=== PATIENT | female | born 1985 | race Caucasian/White ===

== ENCOUNTER 2020-12-01 06:05 | Inpatient (IN) | payer BC, SELFPAY ==
[2020-12-01] VITALS (97 sets, daily range): BP systolic 70–118; BP diastolic 46–86; PULSE 60–93; TEMP 36.7–37.6; O2SAT 95–100; BMI 26.9
[2020-12-01 07:12] LABS: Basophils Percent Auto 0.4 % (0.2-1.2); Eosinophils Absolute Auto 0.1 K/mm3 (0-0.3); Eosinophils Percent Auto 0.9 % (0-4.4); Hematocrit 36.4 % (37.0-47.0); Hemoglobin 12.6 g/dL (12.0-15.0); Immature Granulocyte Absolute 0.06 K/mm3 (0.00-0.031); Immature Granulocyte Percent A 0.7 % (0-0.5); Lymphocytes Absolute Auto 1.04 K/mm3 (0.9-3.2); Lymphocytes Percent Auto 12.6 % (18.3-44.2); Mean Corpuscular HGB Conc 34.6 g/dl (32-36); Mean Corpuscular Hemoglobin 31.2 pg (26-34); Mean Corpuscular Volume 90.1 fl (80-100); Mean Platelet Volume 10.2 fl (7.4-10.4); Monocytes Absolute Auto 0.5 K/mm3 (0.1-0.6); Monocytes Percent Auto 5.7 % (2.6-8.5); Neutrophils Absolute Auto 6.6 K/mm3 (1.3-6.7); Neutrophils Percent Auto 79.7 % (45.5-73.1); Platelet Count Result 195 k/mm3 (150-375); Red Blood Count 4.04 M/mm3 (4.2-5.4); Red Cell Distribution Width 14.6 % (11.5-14.5); White Blood Count 8.2 K/mm3 (4.5-10.0)
--- NOTE | 2020-12-01 07:44 | WPDOBADMIT ---
Obstetrics - Admit Note Admission Note: record reviewed. Additions to the history and/or subsequent changes in the physical findings follow. 35 y/o at 39 3/7 weeks here for induction of labor. She has had variable presentation, but was vertex last week. Rare contractions. GBS neg. AVSS NST reactive TOCO: rare contractions ABD soft, nontender, nonvertex. EXT nontender Bedside ultrasound exam shows transverse lie with head on maternal left. A: IUP at term with transverse lie. P: We have reviewed options many times, and reviewed again today. I offered ECV vs. primary vs. expectant management. The patient is interested in ECV under epidural. If successful, we will induce labor. If not, we will proceed to . We have reviewed risks, benefits and alternatives in detail. She understands and elects to proceed.
[2020-12-01] MEDS: LACTATED RINGERS 1,000 ML 125 ML IV CONT ×2 (08:50→19:57)
--- NOTE | 2020-12-01 11:43 | LDADM ---
This patient, Christiana Galvin, was admitted to Labor/Delivery/Recovery 105 on 12/01/20 at 06:05. Plans for labor, pain management and were discussed with patient. Patient/family oriented to hospital policies and general routines including ID bracelet, bed and alarms, visiting hours, pain management, procedures, bathroom and other care routines, personal items, smoking policy, room service/diet and guest tray routines, infant security routines, and visiting hours. Patient/Family are encouraged to report perceived risks to care and to ask questions if they do not understand what they are told or what they should do. See OBIX for further documentation.
--- NOTE | 2020-12-01 12:28 | PM.PROC ---
Procedure Note - Detailed Date of procedure: 12/01/20 Pre-op diagnosis: Induction of Labor Malpresentation Post-op diagnosis: same Procedure performed: External cephalic version under ultrasound guidance Description of procedure: After appropriate informed consent was obtained, she received an epidural for pain control. Bedside sonography performed by me. The breech was elevated and the head rotated clockwise (forward somersault), effecting vertex presentation. FHR normal. Cervix 2/80/-2. AROM with clear fluid and IUPC placed. Anesthesia: epidural Surgeon: Sidney Barahona MD Estimated blood loss (mL): 0 Drains: Yes (sanon) Pathology: none sent Complications: None Condition: stable Findings: As above.
[2020-12-01] MEDS: OXYTOCIN 30 UNITS/NS 500 ML 30 UNITS/500 ML BAG IV CONT (12:46)
[2020-12-01] MEDS: LORATADINE 10 MG TABLET PO (16:18)
--- NOTE | 2020-12-01 19:24 | PM.OBPNLAB ---
Pain Control Date/time seen: 12/01/20 19:24 Comments: Comfortable with epidural. Pelvic Exam Dilation (cm): 5 Effacement (%): 80 station: -2 Contractions Monitor mode: None Contraction frequency: 3 Contraction pattern: Irregular Status Comments: NST good variability. TOCO: contractions every 2-5 min Assessment and Plan Pitocin rate (mU/min): 18 Plan: continuous present management
[2020-12-01] MEDS: ONDANSETRON INJ 4 MG/2 ML VIAL IV PUSH (21:22)
[2020-12-01] MEDS: diphenhydrAMINE HCl INJ 50 MG/ML VIAL 25 MG IV PUSH (23:14)
[2020-12-02] VITALS (30 sets, daily range): BP systolic 81–149; BP diastolic 39–67; PULSE 65–90; RESP 16–18; TEMP 36.4–37.3; O2SAT 89–100
[2020-12-02] MEDS: LACTATED RINGERS 1,000 ML 125 ML IV CONT (00:17)
--- NOTE | 2020-12-02 01:39 | P.PCNOB_ITS ---
OB - Delivery Note Procedure Delivery date: 12/02/20 Procedure: External cephalic version under ultrasound guidance Induction of labor Excisional biopsies of vulvar skin tags x 2 Induction method: AROM and per pitocin protocol Delivery monitor: external FHT, external uterine and internal uterine Route of delivery: Laceration Description: Perineal - 2nd Degree Delivery repair: vicryl (3-0) Specimen: Yes (cord blood, vulvar skin tags x 2) Quantitative Blood Loss (ml): 40 Anesthesia type: Epidural Disposition: PACU Complications: None Narrative: 35 y/o at 39 4/7 weeks gestation who had presented to the hospital for external cephalic version / induction of labor. Bedside ultrasound exam by me confirmed transverse lie. She received an epidural. ECV was successful. Oxytocin was administered intravenously. Amniotomy was performed with return of clear fluid. Her labor progressed and her cervix dilated completely. She pushed with good effort over one contraction and delivered the 's head to the perineum, followed by the body. The nose and mouth were bulb suctioned. After a delay, the cord was clamped and cut. The was handed off the field. Cord blood was collected. The placenta delivered spontaneously and was grossly normal in appearance. The usual 3 vessel cord was noted. A second degree midline perineal laceration was sustained. This was reapproximated using 3 0 Vicryl in the usual layered fashion. Excellent hemostasis resulted as did excellent reapproximation of the normal anatomy. Two small right vulvar skin tags measuring 2 x 2 mm each were elevated with tissue forceps and sharply excised with scissors. Wound edges were reapproximated using single, interrupted sutures of 3-0 Vicryl. Needle and instrument counts were correct. The patient was taken to recovery room in stable condition. The infant went to the nursery in stable condition. I was present and scrubbed for the entire delivery. [place] Baby Date of : 12/02/20 Time of : 01:12 Weeks of gestation at delivery: 39 Infant gender: Male Weight (pounds): 6 Weight (ounces): 10 presentation: vertex position: Right Occiput Anterior Placenta delivery description: Spontaneous and Normal Configuration cord vessel description: 3 Vessels and Delayed Cord Clamping score one minute: 8 score five minutes: 8
[2020-12-02] MEDS: OXYTOCIN 30 UNITS/NS 500 ML 30 UNITS/500 ML BAG 125 UNITS IV CONT (01:43)
--- NOTE | 2020-12-02 01:45 | PM.OBDSVD ---
DS: Admitting Diagnosis Admitting Diagnosis Admitting Diagnosis: Malpresentation DS: Discharge Diagnosis Discharge Diagnosis (1) (normal spontaneous vaginal delivery): Code(s): O80 - Encounter for full-term uncomplicated delivery Status: Acute OB - DS: Summary OB Procedures : NST, Ultrasound and External version OB Procedures Intrapartum: Spontaneous Vag Delivery OB Procedures: : None DS: Data Data Completed and Pending Labs on day of discharge: Labs from last 24 hours 12/01/20 12/01/20 12/01/20 06:59 06:59 06:59 WBC 8.2 RBC 4.04 L Hgb 12.6 Hct 36.4 L MCV 90.1 MCH 31.2 MCHC 34.6 RDW 14.6 H Plt Count 195 MPV 10.2 Immature Gran % (Auto) 0.7 H Neut % (Auto) 79.7 H Lymph % (Auto) 12.6 L [place] % (Auto) 5.7 Eos % (Auto) 0.9 Baso % (Auto) 0.4 Lymph # (Auto) 1.04 [place] # (Auto) 0.5 Eos # (Auto) 0.1 Baso # (Auto) 0.0 Abs Immat Gran (auto) 0.06 H Absolute Neuts (auto) 6.6 Absolute Nucleated RBC 0.0 Nucleated RBC % 0.0 RPR Pending Blood Type O Positive Antibody Screen Negative Discharge Plan Discharge Attending physician on discharge: Sidney Barahona Discharging Clinician: Sidney Barahona Patient Disposition: Home, Self-Care Activity: pelvic rest Diet: regular Discharge Instructions: Call or return if temperature above 100.4? F, increased abdominal pain, increased vaginal bleeding or any new problems. Stand Alone Forms: General Discharge Information Follow-up/Referrals: Sidney Barahona MD [Physician] - 6 Weeks Discharge Medications: New ibuprofen 600 mg tablet 600 mg PO Q6H PRN (Reason: cramps) Qty: 30 RF: 0 No Action #2 Tablet 1 tablet PO DAILY RF: 0 Date of admission: 12/01/20 06:05 Primary Care Provider: Too Dick Admitting Provider: Sidney Barahona Attending physician on admission: Sidney Barahona Condition: Stable
[2020-12-02] MEDS: LANOLIN (LANSINOH) 7.5 GM CREAM 1 APPLIC TOPICAL (03:19)
[2020-12-02] MEDS: WITCH HAZEL 40 PADS 1 PAD TOPICAL (03:19)
[2020-12-02] MEDS: BENZOCAINE 20% AER SPR (*SP) 56 GM CAN 1 SPRAY TOPICAL (03:19)
[2020-12-02] MEDS: IBUPROFEN 600 MG TABLET PO ×3 (03:19→16:25)
--- NOTE | 2020-12-02 04:03 | OBPPTRN ---
Patient transferred to post room #285 via w/c. Support person present. Oriented to unit, room, information board, rooming in, admission packet and security measures. Patient verbalizes understanding.
--- NOTE | 2020-12-02 05:10 | PC.NURSE ---
Pt noted to have uterus deviated to the right. Assisted pt to restroom to empty bladder and then FF at U.
[2020-12-02] MEDS: ACETAMINOPHEN 325 MG TABLET 650 MG PO (05:51)
[2020-12-02] MEDS: DOCUSATE SODIUM 100 MG CAPSULE PO ×2 (09:46→16:25)
[2020-12-02] MEDS: MULTIVIT/MIN/PREN/FOL AC/IRON TABLET 1 TAB PO (09:46)
[2020-12-02 11:08] LABS: Rapid Plasma Reagin Non-Reactive (NonReactive)
--- NOTE | 2020-12-02 12:10 | PC.NURSE ---
Consulted with patient, reviewed feeding cues, frequencies, duration of feedings, feeding elimination flow sheet, and signs of adequate intake. Demonstrated stimulation techniques to wake for feeding. Assisted with to breast. Reviewed positioning/alignment, holding breast and asymmetrical latch on. was able to latch correctly. Encouraged mom to get deep latch every time goes to breast. Shown ways to achieve deeper latch each time. nursed eagerly, with steady draws and frequent swallowing noted. Reviewed signs of a correct latch, effective nursing and suck swallow ratio. was able to maintain latch without discomfort to mother. Nipple care reviewed. Instructed mother to call out for RN assistance if she is unable to latch for feeding or she has discomfort with nursing. Instructed feeding should be initiated three hours from start of last feeding or if feeding cues are noted before. Mother voiced understanding of information shared.
[2020-12-03] MEDS: IBUPROFEN 600 MG TABLET PO ×2 (01:17→10:07)
[2020-12-03 04:59] LABS: Hematocrit 34.5 % (37.0-47.0); Hemoglobin 11.9 g/dL (12.0-15.0)
--- NOTE | 2020-12-03 07:44 | WPDANLDPN2 ---
Anes-Prog Note L&D Date/Time: 12/03/20 07:44 Comfortable throughout: labor and delivery Neuraxial method: epidural Epidural/Spinal procedure site: clean & non-tender Neuro status: Neuro function grossly intact. Cardiovascular status: normal Respiratory status: normal Airway patency: baseline Mental status: baseline Post-Op hydration status: normal Vital Signs: Last Vital Signs Temp 36.4 C 12/02/20 20:00 Pulse 81 12/02/20 20:00 Resp 18 12/02/20 20:00 BP 104/67 12/02/20 20:00 Pulse Ox 98 12/02/20 20:00 Pain score (VAS): 0 Post-procedural complaints: none Patient feedback: Patient satisfied with anesthetic care.
[2020-12-03 08:00] VITALS: BP 110/77; PULSE 80; RESP 18; TEMP 36.8
--- NOTE | 2020-12-03 08:55 | PM.OBPNVD ---
OB - PN: Subj Subjective Date/time seen: 12/03/20 08:55 Narrative: Pain OK. OB - PN: Obj Data Labs CBC & Chem 7: 12/03/20 04:09 Labs: Laboratory Results - last 24 hr 12/01/20 12/03/20 06:59 04:09 Hgb 11.9 L Hct 34.5 L RPR Non-reactive OB - PN A/P Plan Comments: A: PPD#1, doing well. Would like to go home. P: Home to f/u 6 weeks. Exam Psych: Other: AVSS ABD soft, nontender, fundus firm EXT nontender
[2020-12-03] MEDS: MULTIVIT/MIN/PREN/FOL AC/IRON TABLET 1 TAB PO (10:07)
[2020-12-03] MEDS: DOCUSATE SODIUM 100 MG CAPSULE PO (10:07)
--- NOTE | 2020-12-03 13:34 | PC.NURSE ---
1140 note; nurse worked with mother and baby. Attempt had been made at 1000, but baby sleepy; he would latch and fall asleep; allowed to rest. Now baby more awake. Reviewed with mother alignment and positioning in cross cradle and football positions; reviewed how to assess for deep latch, waiting patiently for baby to open his mouth wide to facilitate a deeper latch; baby able to latch with mostly deep latch; mother reports less nipple pain today, and initial latch on pain that resolves. mother shown how to gently adjust baby to a deeper latch while on the breast. Mother has a longer nipple and baby seemed to fight a really deep latch, but did OK with gentle gradual adjustment to deeper latch; baby was initially very fussy at breast, but after a diaper change, was happier and nursed better. Mother has easily expressed colostrum. reviewed frequency, q2-3h and on demand feedings, and duration of feedings, waking infant if needed; reviewed use of feeding log to monitor feeding and output per day of age, and nipple care; breast feeding section of mother-baby guide highlighted including LC contact information. Mother voiced concerns about breast feeding and caring for 2 other toddlers at home; FOB will be home for several weeks. Nurse suggested mother finding a quiet place alone with baby if possible, while baby is learning how to feed and working on latch; also suggested if baby fighting latch on, try changing to a different position, or different breast; also OK to pump at a feeding baby will not nurse, and bottle feed . All these suggestions in an effort to keep mother's stress minimal, and still continue working on breast feeding; mother reports a strong breast feeding history with her older boys. Parents attentive to all instruction and voiced understanding of all information shared.
[2020-12-05 10:59] VITALS: BP 107/78; PULSE 75; RESP 20; TEMP 36.9; O2SAT 98
== END 2020-12-03 13:10 | disposition home or self-care (01) | DRG 807 ==
LOC: ANHLDR 12-02 01:47 → ANHOB2 12-02 04:16
PROVIDERS: Admitting Provider Obstetrics & Gynecology; PCP Family Medicine; Visit Provider Obstetrics & Gynecology
DX: O32.2XX0 Maternal care for transverse and oblique lie, not applicable or unspecified (principal); Z37.0 Single live birth; O70.1 Second degree perineal laceration during delivery; O76 Abnormality in fetal heart rate and rhythm complicating labor and delivery; Z3A.39 39 weeks gestation of pregnancy
CPT/HCPCS: 36415; 85014; 85018; 85025; 86592; 86850; 86900; 86901; 88305; A9270; J1200; J2405; J2590; J2795; J7120

== ENCOUNTER 2023-11-17 00:43 | Day surgery (SDC) | payer BC, SELFPAY ==
[2023-10-19 15:02] VITALS: BMI 20.6
--- NOTE | 2023-11-02 11:31 | SUR.PREOP ---
Patient called regarding upcoming procedure. Reviewed preop instructions, appointment times, and procedure prep.
[2023-11-03 10:43] VITALS: BMI 20.6
--- NOTE | 2023-11-15 12:24 | SUR.PREOP ---
Patient called regarding upcoming procedure- no answer. Message left with arrival time and number to call if she has any questions.
[2023-11-17 12:03] VITALS: BP 107/81; PULSE 100; RESP 18; TEMP 36.6; O2SAT 98; BMI 20.6
--- NOTE | 2023-11-17 12:04 | PM.HPGS ---
History of Present Illness History of Present Illness Consent: Risks, benefits, and alternatives have been discussed and questions answered. Patient agrees to proceed with procedure. Chief complaint: change in bowel habit Narrative: Christiana Galvin is a 38 year old female Presents for colonoscopy. Patient reports some bowel irregularity. She has tried no specific therapy. She denies any weight loss or bleeding. Family history is significant grandmother both paternal and maternal grandmothers have had colon cancer. There is no history of polyps within her family. No history of lesions with in first-degree relatives. Patient is referred today for colonoscopy. Review of Systems Review of Systems: Review of systems noncontributory. [facility] Past Medical History Medical History Anaphylactic reaction due to shellfish (crustaceans), initial encounter Osteochondroma Family History Family History Mother Family history of thyroid disease Grandparent Family history of cardiovascular disease Family history of cardiac disorder Diabetes mellitus Family history of malignant neoplasm Father Family history of cardiovascular disease Social History Social History (Updated 10/19/23 @ 09:53 by Christiana Jeter MA) Smoking status: Never smoker Smoking end date: 11/21/15 Alcohol intake: current Alcohol use details: occasionally Substance use: current Substance use type: marijuana Other substance usage details: edibles Lack of Transportation: No Lack of Food: Never True Current Housing: I Have Housing Concerned About Future Housing: No Difficulty Paying Gas/Electric Bills: No Difficulty Paying for Meds: No Currently Unemployed: No Education: Bachelor's Degree Difficulty w/ Childcare or Family Care: No Living arrangements: with family Spiritual care concerns: No Meds Home Medications and Allergies Home Medications Medication Instructions Recorded Confirmed Type bupropion HCl 150 mg 24 hr tablet, 150 mg PO QAM #90 tabs 10/19/23 11/17/23 Rx extended release Allergies Allergy/AdvReac Type Severity Reaction Status Date / Time shrimp Allergy Mild lip Verified 11/17/23 12:00 swelling chicken derived AdvReac Intermediate Hives Verified 11/17/23 12:00 Exam Narrative: Physical exam reveals patient to be alert. Vital signs stable. HEENT exam is unremarkable. Patient is anicteric. Lungs are clear to auscultation and percussion. Heart is without murmur or extra sounds. Abdomen bowel sounds are present soft nontender with no organomegaly. Digital external rectal exam normal. Assessment and Plan Assessment and plan (1) Change in consistency of stool: Code(s): R19.5 - Other fecal abnormalities Status: Acute Assessment and Plan: Patient notes irregular bowel movements. Would recommend the patient try more fiber in her diet such as FiberCon 2 tabs p.o. b.i.d.. Balanced diet may also be helpful. Patient referred for colonoscopy today will be performed. She denies any first-degree relatives with colon polyps or cancer. Two grandparents did have colon cancer.
--- NOTE | 2023-11-17 12:14 | WPDANESEPPF ---
Anes - Initial Pre Proc Eval Procedure: Operation Date: 11/17/23 13:00 Proposed Procedures p Colonoscopy - Juan Manuel Velazquez MD Date/Time: 11/17/23 12:14 Surgeon: Juan Manuel Velazquez MD Pre Op Diagnosis: change in bowel habit Patient Data Age: 38 Gender: F Height: 1.63 m Weight: 54.5 kg Last Vital Signs Temp 98 F 11/17/23 12:03 Pulse 100 11/17/23 12:03 Resp 18 11/17/23 12:03 BP 107/81 11/17/23 12:03 Pulse Ox 98 11/17/23 12:03 O2 Del Method Room Air 11/17/23 12:03 Allergies Allergy/AdvReac Type Severity Reaction Status Date / Time shrimp Allergy Mild lip Verified 11/17/23 12:00 swelling chicken derived AdvReac Intermediate Hives Verified 11/17/23 12:00 Home Medications Medication Instructions Recorded Confirmed Type bupropion HCl 150 mg 24 hr tablet, 150 mg PO QAM #90 tabs 10/19/23 11/17/23 Rx extended release Patient hx anesthesia problems: none Family hx anesthesia problems: none Results Review: All pre-operative results and documents have been reviewed as part of the pre-operative evaluation. [facility] Past Medical History Medical History Anaphylactic reaction due to shellfish (crustaceans), initial encounter Osteochondroma Family History Family History Mother Family history of thyroid disease Grandparent Family history of cardiovascular disease Family history of cardiac disorder Diabetes mellitus Family history of malignant neoplasm Father Family history of cardiovascular disease Social History Social History (Updated 10/19/23 @ 09:53 by Christiana Jeter MA) Smoking status: Never smoker Smoking end date: 11/21/15 Alcohol intake: current Alcohol use details: occasionally Substance use: current Substance use type: marijuana Other substance usage details: edibles Lack of Transportation: No Lack of Food: Never True Current Housing: I Have Housing Concerned About Future Housing: No Difficulty Paying Gas/Electric Bills: No Difficulty Paying for Meds: No Currently Unemployed: No Education: Bachelor's Degree Difficulty w/ Childcare or Family Care: No Living arrangements: with family Spiritual care concerns: No Anes - Eval Final PreProcedure Day of Procedure 11/17/23 12:14 Patient weight: normal Heart: regular rate and rhythm Lungs: clear to auscultation Airway: Mallampati scale class II Neurological: alert and oriented Last oral intake: >/= 8 hours ASA classification: II Emergent: no Anesthetic plan: proceed Anesthesia type and monitoring: general GIVS and standard monitoring Results Review: All pre-operative results and documents have been reviewed as part of the pre-operative evaluation. Informed Consent: The patient's anesthetic plan and its attendant risks and benefits were discussed with the patient/family/POA. Questions were solicited and answers provided to the satisfaction of the patient/family/POA.
[2023-11-17] MEDS: LACTATED RINGERS 1,000 ML 150 ML IV CONT (12:19)
[2023-11-17 13:15] VITALS: BP 99/69; PULSE 78; RESP 22; O2SAT 100
[2023-11-17 13:25] VITALS: BP 103/69; PULSE 76; RESP 18; O2SAT 100
[2023-11-17 13:35] VITALS: BP 100/73; PULSE 80; RESP 18; O2SAT 100
== END 2023-11-17 13:45 | disposition home or self-care (01) ==
PROVIDERS: PCP Family Medicine; Visit Provider Internal Medicine Gastroenterology
PROC: 0DJD8ZZ Inspection of Lower Intestinal Tract, Via Natural or Artificial Opening Endoscopic (ICD-10-PCS; CPT 45378; principal; 2023-11-17 13:00)
DX: R19.4 Change in bowel habit (principal); K64.8 Other hemorrhoids; Z80.0 Family history of malignant neoplasm of digestive organs
CPT/HCPCS: 45378; J2704; J7120

== ENCOUNTER 2024-04-27 10:47 | Outpatient (CLI) | payer BC, SELFPAY ==
--- NOTE | ~2024-04-27 | XR_ITS ---
Right Shoulder Technique: AP and axillary views were obtained. Clinical History: Pain Findings: No fracture or dislocation is seen. Osseous alignment is anatomic. The glenohumeral and acr omioclavicular joint spaces are preserved. Soft tissues are unremarkable. Impression: Unremarkable right shoulder radiographs. Reviewed, dictated and finalized at [facility]. Impression: Unremarkable right shoulder radiographs.
== END 2024-04-27 10:48 ==
LOC: MICIMG 10:50
PROVIDERS: PCP Family Medicine; Visit Provider Family Medicine
DX: M25.511 Pain in right shoulder (principal)
CPT/HCPCS: 73030

== ENCOUNTER 2024-10-11 12:13 | Outpatient (CLI) | payer BC, SELFPAY ==
--- NOTE | ~2024-10-11 | MM_ITS ---
EXAMINATION: MM screening [place] BI w marie HISTORY: Screening mammogram TECHNIQUE: Craniocaudal and mediolateral oblique 3-D tomosynthesis images were obtained and synthetic 2-D images were generated. CAD analysis was submitted and interpreted. COMPARISON: No prior mammogram is available for comparison at this institution. BREAST PARENCHYMAL COMPOSITION:Dense: The breasts are extremely dense, which lowers the sensitivity o f mammography. FINDINGS: No suspicious mass, calcification, or architectural distortion are identified in either cece ast to suggest malignancy. There has been no suspicious interval change. IMPRESSION: No mammographic evidence of malignancy. Recommend routine screening mammography in one year. BI-RADS Category 1: Negative Reviewed, dictated and finalized at location . [facility]
== END 2024-10-11 12:14 | disposition home or self-care (01) ==
PROVIDERS: PCP Family Medicine; Visit Provider Obstetrics & Gynecology
DX: Z12.31 Encounter for screening mammogram for malignant neoplasm of breast (principal)
CPT/HCPCS: 77063; 77067

== ENCOUNTER 2025-02-19 13:00 | Outpatient (CLI) | payer BC, SELFPAY ==
--- NOTE | ~2025-02-19 | XR_ITS ---
EXAM: XR cervical spine 4-5V DATE: 02/19/2025 13:19 HISTORY: M54.12 - Radiculopathy, cervical region . COMPARISON: None available. FINDINGS: Craniocervical association and atlantoaxial joint are aligned. No prevertebral soft tissue swelling. Trace retrolistheses at C5-6 and C6-7. The retrolisthesis at C5-6 resolves in flexion. Tra ce retrolistheses and anterolistheses emerge at C2-3 through C4-5 in extension and flexion respective ly. Vertebral body heights are maintained. Normal disc spaces. Moderate degenerative disc changes at C5-6 and C6-7. Normal posterior elements. IMPRESSION: Trace grade 1 dynamic listheses at C2-3 through C5-6. Stable retrolisthesis at C6-7. Mode rate degenerative disc disease at C5-6 and C6/7. Reviewed, dictated and finalized at location [facility]. IMPRESSION: Trace grade 1 dynamic listheses at C2-3 through C5-6. Stable retrol isthesis at C6-7. Moderate degenerative disc disease at C5-6 and C6/7.
== END 2025-02-19 13:01 | disposition home or self-care (01) ==
PROVIDERS: PCP Family Medicine; Visit Provider Family Medicine
DX: M54.12 Radiculopathy, cervical region (principal); M50.323 Other cervical disc degeneration at C6-C7 level
CPT/HCPCS: 72050